=== PATIENT | male | born 1940 | race Caucasian/White ===

== ENCOUNTER 2023-01-22 15:51 | Emergency (ER) | payer OTHER, BC ==
[2023-01-22 16:36] VITALS: TEMP 98; BMI 33.9
[2023-01-22] MEDS ORDERED: BACITRACIN 0.9 GM PACKET ONE (18:48)
[2023-01-22 20:20] VITALS: PULSE 50
[2023-01-23 03:41] VITALS: BP 124/67; RESP 18
== END 2023-01-23 03:54 | disposition home or self-care (01) ==
LOC: JER 15:51
DX: L03.115 Cellulitis of right lower limb (principal)
CPT/HCPCS: 99283-25

== ENCOUNTER 2023-06-10 15:26 | Emergency (ER) | payer OTHER, BC ==
[2023-06-10] MEDS ORDERED: CALCIUM GLUC IN NACL, ISO-OSM 1 GM/50 ML BAG IVPB ONE (15:42)
[2023-06-10] MEDS ORDERED: CALCIUM GLUCONATE 10% - 1,000 MG/10 ML VIAL IVPB ONE (15:51)
[2023-06-10 16:01] LABS: BASO % 0.3 % (0-2.0); EOS % 0.9 % (0-4.5); HEMATOCRIT 37.2 % (35.4-49); LYMPH % 8.5 % (8-40); MCH 28.4 pg (25.7-33.7); MCHC 32.1 g/dl (32.0-35.9); MEAN CELL VOLUME 88.5 fl (80-96); MEAN PLT VOLUME 9.6 fl (7.5-11.1); MONO % 8.6 % (3.8-10.2); NEUT % 81.7 % (42.8-82.8); PLATELET COUNT 113 10^3/uL (134-434); RBC 4.21 M/mm3 (4.00-5.60); RDW 15.8 % (11.9-15.9); WHITE BLOOD COUNT 8.4 K/mm3 (4.0-10.0)
[2023-06-10] MEDS ORDERED: ATROPINE SULFATE 1 MG/10 ML DISP.SYRIN IVPUSH ONE (16:03)
[2023-06-10 16:09] LABS: INR 1.11 (0.83-1.09); PROTHROMBIN TIME (PATIENT) 12.9 SEC (9.7-13.0)
[2023-06-10 16:11] LABS: ACTIVATED PTT 25.8 SECONDS (25.2-36.5)
[2023-06-10 16:24] LABS: POTASSIUM 4.8 mmol/L (3.5-5.1)
[2023-06-10 16:27] LABS: ALBUMIN 3.9 g/dl (3.4-5.0); BLOOD UREA NITROGEN 18.5 mg/dL (7-18); MAGNESIUM 2.1 mg/dL (1.8-2.4)
[2023-06-10 16:30] LABS: CREATININE 1.5 mg/dL (0.55-1.3)
[2023-06-10] MEDS ORDERED: DOPAMINE 400 MG/D5W - 400,000 MCG/250 ML INFUS.BAG IVPB SCH (16:30)
[2023-06-10 16:31] LABS: BILIRUBIN,TOTAL 0.4 mg/dL (0.2-1)
[2023-06-10 16:32] LABS: TOT PROT 7.4 g/dl (6.4-8.2)
[2023-06-10 16:35] LABS: N-TERMINAL BNP 1568.5 pg/ml (5-450)
[2023-06-10 18:05] VITALS: BMI 37.3
[2023-06-10 18:12] VITALS: BP 150/100; PULSE 80; RESP 18; TEMP 98
== END 2023-06-10 18:19 | disposition short-term general hospital (02) ==
LOC: JER 15:26
DX: R06.02 Shortness of breath (principal); R11.0 Nausea; R07.9 Chest pain, unspecified; R00.1 Bradycardia, unspecified
CPT/HCPCS: 36415; 71045-TC-FY; 80053; 83735; 83880; 84484; 85025; 85610; 85730; 93005; 93010; 99291; 99292